=== PATIENT | female | born 1995 | race Caucasian/White ===

== ENCOUNTER → 2018-08-10 | Outpatient (CLI) | payer OTHER ==
[~2018-08-10] MED LIST: ALBUTEROL 0.083% (NEB) 2.5 MG/3 ML AMP ONE
--- NOTE | 2018-08-11 19:27 | RADRPT ---
Echocardiogram Report Patient Name: Jason HEARD ID: [id number] : 1995 (23y 7m)Study Date: 08/10/2018 10:18:38 AM Gender: FAccession #: [id number] Tech: Lester Awad RDCS Location: EKG Ref.Physician: JOHN BANGURA Height(Cm): BSA: Weight(Kg): Quality: AdequateAccount #: Procedures: Echocardiographic Report: Transthoracic echocardiogram with complete 2D, M-Mode, and doppler examination. Indications: Shortness of breath. Measurements: 2D/M Mode Doppler Measurement Value Normal Range Measurement Value Normal Range LVIDd 2D 4.3 [ 3.8 - 5.2 ] cm AV Peak Tye 1.5 [ 100.0 - 170.0 ] cm/sec LVIDs 2D 2.3 [ 2.2 - 3.5 ] cm AV Peak PG 9.0 [ 2.0 - 9.0 ] mmHg LVPWd 2D 0.8 [ 0.6 - 0.9 ] cm LVOT Peak Tye 1.1 [ 70.0 - 110.0 ] cm/sec IVSd 2D 0.7 [ 0.6 - 0.9 ] cm LVOT Peak PG 5.0 [ 2.0 - 6.0 ] mmHg AoR Diam 2D 2.2 [ 2.3 - 3.1 ] cm MV E Peak Tye 1.1 [ 60.0 - 130.0 ] cm/sec EDV 2D 84.9 [ 46.0 - 106.0 ] ml MV A Peak Tye 0.5 [ 100.0 - 120.0 ] cm/sec ESV 2D 17.5 [ 14.0 - 42.0 ] ml MV E/A 2.1 [ 0.8 - 1.5 ] ratio EF 2D 79.4 [ 54.0 - 74.0 ] percent MV Decel Time 137 [ 104 - 258 ] msec LA Dimen 2D 3.0 [ 2.7 - 3.8 ] cm Lat E` Tye 0.1 [ 10.0 - 15.0 ] cm/sec Lateral E/E` 7.3 [ 1.0 - 2.0 ] ratio Med E` Tye 0.1 cm/sec MV E/A 2.1 [ 0.8 - 1.5 ] ratio TR Peak Tye 2.3 [ 100.0 - 280.0 ] cm/sec TR Peak PG 21.0 mmHg RVSP 24.0 [ 10.0 - 36.0 ] mmHg RA Pressure 3.0 mmHg Findings: Left Ventricle: Normal left ventricular systolic function. Normal left ventricular cavity size. Normal left ventricular wall thickness. Ejection fraction is visually estimated at 60 %. Tissue Doppler/Mitral Doppler indices are within normal limits. Right Ventricle: Normal right ventricular size. Normal right ventricular systolic function. Left Atrium: The left atrium is normal in size. Right Atrium: The right atrium is normal in size. Mitral Valve: Normal appearance and function of the mitral valve with trace physiologic regurgitation. Aortic Valve: Normal appearance of the aortic valve. No significant aortic stenosis or insufficiency. Tricuspid Valve: Normal appearance of the tricuspid valve. Estimated peak PA systolic pressure 24 mmHg. There is trace tricuspid regurgitation. Pulmonic Valve: Normal pulmonic valve appearance. Pericardium: Normal pericardium with no significant pericardial effusion. Aorta: Normal aortic root. IVC: Normal size and normal respiratory collapse consistent with normal right atrial pressure. Conclusions: Normal left ventricular systolic function. Normal left ventricular cavity size. Normal left ventricular wall thickness. Ejection fraction is visually estimated at 60 %. Tissue Doppler/Mitral Doppler indices are within normal limits. Normal right ventricular size. Normal right ventricular systolic function. The left atrium is normal in size. The right atrium is normal in size. No significant valvular stenosis or regurgitation seen. Normal pericardium with no significant pericardial effusion. Electronically Signed By: Adria Go 2018-08-11 19:26:50 PDT
== END | disposition home or self-care (01) ==
LOC: EKG 09:59
PROVIDERS: ATTEND Specialist
DX: R06.00 Dyspnea, unspecified (principal)
CPT/HCPCS: 93306; 94060; 94664; 94726; 94729; Z7610